=== PATIENT | male | born 1985 | race Caucasian/White ===

== ENCOUNTER 2016-05-12 17:23 | Emergency (ER) | payer OTHER ==
[~2016-05-12] VITALS: Ht 190.5 cm; Wt 85.0 kg
[2016-05-12] MEDS ORDERED: ONDANSETRON 2 MG/ML (Z0FRAN) 2 ML VIAL IM ONE (17:50)
[2016-05-12] MEDS ORDERED: KETOROLAC 30 MG/ML (TORADOL) 1 ML VIAL IV ONE (17:50)
[2016-05-12] MEDS ORDERED: ONDANSETRON 2 MG/ML (Z0FRAN) 2 ML VIAL IV ONE (18:20)
[2016-05-12 18:26] LABS: MEAN CORPUSCULAR HEMOGLOBIN 29.3 PG (26.0-34.0); MEAN CORPUSCULAR HGB CONC 34.5 g/dL (31.0-37.0); MEAN CORPUSCULAR VOLUME 85 FL (80-100); MEAN PLATELET VOLUME 10.9 FL (6.0-9.5); PLATELET COUNT 222 10^3uL (150-450); WHITE BLOOD COUNT 16.46 10^3uL (4.0-11.0)
[2016-05-12 18:42] LABS: BAND NEUTROPHILS % 2 % (0-6); EOSINOPHILS % 0 % (0-4); LYMPHOCYTES # 0.8 #; MONOCYTES # 0.5 #; MONOCYTES % 3 % (3-11); RBC MORPH NORMAL (NORMAL); SEGMENTED NEUTROPHILS % 90 % (51-67); TOTAL CELLS COUNTED 100
[2016-05-12 18:45] LABS: ALBUMIN 4.6 g/dL (3.4-5.0); ANION GAP 15.4 MEQ/L (3-15); TOTAL PROTEIN 7.6 g/dL (6.4-8.5)
[2016-05-12 18:55] VITALS: BP 118/76
== END 2016-05-12 18:56 | disposition home or self-care (01) ==
LOC: ED 17:26
DX: N20.1 Calculus of ureter (principal)
CPT/HCPCS: 36415; 74176; 80053; 83690; 85025; 96374; 96375; 99283; J1885; J2405